=== PATIENT | female | born 1990 | race Two or more races ===

== ENCOUNTER 2016-12-15 15:35 | Emergency (ER) | payer MEDICAID ==
[~2016-12-15 15:35] MED LIST: ANEXSIA 5/325 M1 TAB PO; BACTRIM DS TAB1 EAC2 PO; CEPHALEXIN500 M1 PO; COUGH SYRU100 MG/5 M PO; CYCLOBENZAPRINE10 M1 PO; HYDROCODONE/APA1 TAB PO; HYDROXYZINE HCL10 M1 PO; IBUPROFEN600 MG PO; IRON325 MG PO; MELOXICAM7.5 M1 PO; MOBIC7.5 M2 PO; NO HOME MEDICATION XX; NORCO 5-325 TA1 EACH PO; NORCO 5/3251 TAB PO; PAIN RELIEVER500 M6 PO; PRENATAL1 EACH PO; PROMETHAZINE25 MG PO; TRAMADOL HCL50 M2 PO; VALIUM5 M1 PO; ZOFRAN4 MG PO
== END 2016-12-15 15:45 ==
LOC: EDMED 15:35
DX: S80.01XA Contusion of right knee, initial encounter (principal); F41.9 Anxiety disorder, unspecified; M10.9 Gout, unspecified; Z87.891 Personal history of nicotine dependence; W10.9XXA Fall (on) (from) unspecified stairs and steps, initial encounter; Y92.009 Unspecified place in unspecified non-institutional (private) residence as the place of occurrence of the external cause